=== PATIENT | female | born 1980 | race Caucasian/White ===

== ENCOUNTER 2022-11-17 06:40 | Emergency (ER) | payer MEDICAID ==
[~2022-11-17] VITALS: Ht 170.2 cm; Wt 78.0 kg
[2022-11-17 07:01] VITALS: O2SAT 100
[2022-11-17 09:11] LABS: CLARITY URINE CLOUDY (CLEAR); COLOR URINE YELLOW (YELLOW); GLUCOSE URINE NEGATIVE (NEGATIVE); KETONES URINE NEGATIVE (NEGATIVE); LEUKOCYTE ESTERASE URINE NEGATIVE (NEGATIVE); NITRITE URINE NEGATIVE (NEGATIVE); OCCULT BLOOD URINE NEGATIVE (NEGATIVE); PH URINE 5.5 (4.5-8.0); PROTEIN URINE NEGATIVE (NEGATIVE); SPECIFIC GRAVITY URINE 1.023 (1.005-1.030); UROBILINOGEN URINE 0.2 E.U./dL (0.2-1.0)
[2022-11-17] MEDS ORDERED: KETOROLAC 30MG/ML VIAL IV STA (09:23)
[2022-11-17] MEDS ORDERED: SODIUM CHLORIDE 0.9% 1,000 ML IV ONE (09:30)
[2022-11-17 09:34] LABS: MUCUS URINE TRACE /lpf (< = 2+); SQUAMOUS EPITHELIAL CELL URINE 1+ /lpf (RARE/1+)
[2022-11-17 09:35] LABS: CALCIUM OXALATE CRYSTALS URINE 3+ /lpf
[2022-11-17 09:36] LABS: BASOPHILS % 0.2 % (0.0-2.0); EOSINOPHILS % 0.3 % (0.0-5.0); HEMATOCRIT. 38.5 % (36.0-48.0); HEMOGLOBIN. 12.7 g/dL (12.0-16.0); LYMPHOCYTES % 12.6 % (20.0-50.0); MEAN CORPUSCULAR HEMOGLOBIN 29.2 pg (28.0-32.0); MEAN CORPUSCULAR HGB CONC 32.9 g/dL (31.0-37.0); MEAN CORPUSCULAR VOLUME 88.7 fL (81.0-99.0); MEAN PLATELET VOLUME 7.7 fl (7.4-10.4); MONOCYTES % 3.5 % (2.0-8.0); NEUTROPHILS % 83.4 % (40.0-76.0); PLATELET 297 x1000/uL (130-400); RED BLOOD CELL COUNT 4.34 mill/uL (4.2-5.4); RED CELL DISTRIBUTION WIDTH 14.1 % (11.6-14.6); WHITE BLOOD COUNT 13.5 x1000/uL (4.5-11.0)
[2022-11-17 09:36] LABS: WBC URINE 0-2 /hpf (0-2)
[2022-11-17 09:37] LABS: BACTERIA URINE TRACE; RBC URINE 0-2 /hpf (0-2)
[2022-11-17 09:50] LABS: CHLORIDE 106 mEq/L (98-107); INDEX HEMOLYSI 1 (1-3); INDEX ICTERIC 1 (1-4); INDEX LIPEMIC 1 (1-3); SODIUM 136 mEq/L (136-145)
[2022-11-17 09:52] LABS: HCG SCREEN NEGATIVE
[2022-11-17 09:59] LABS: ALBUMIN 3.8 g/dL (3.4-5.0); CALCIUM 8.7 mg/dL (8.5-10.1); CARBON DIOXIDE 24 mEq/L (21-32); CREATININE 0.5 mg/dL (0.6-1.3); GLUCOSE 131 mg/dL (70-105); PROTEIN TOTAL 7.6 g/dL (6.0-8.3); UREA NITROGEN BLOOD 11 mg/dL (7-21)
[2022-11-17 10:00] LABS: ALANINE AMINOTRANSFERASE 21 IU/L (13-61); ASPARTATE AMINOTRANSFERASE 13 IU/L (15-37); BILIRUBIN TOTAL 0.6 mg/dL (0.1-1.0)
[2022-11-17 10:18] VITALS: BP 128/53; PULSE 71; RESP 20; TEMP 98.1
[2022-11-17] MEDS ORDERED: IBUP-2029 MT (12:53)
== END 2022-11-17 13:37 | disposition home or self-care (01) ==
LOC: ER 06:40
DX: K80.50 Calculus of bile duct without cholangitis or cholecystitis without obstruction (principal); Z98.890 Other specified postprocedural states
CPT/HCPCS: 80053; 81003; 81025; 84703; 83690; 85025; 36415; 76700; 96361; 96374; 99285; J1885; J7030; Z7610

== ENCOUNTER 2023-02-04 20:19 | Emergency (ER) | payer MEDICAID ==
[~2023-02-04] VITALS: Ht 160 cm; Wt 86.0 kg
[~2023-02-04 20:19] MED LIST: IBUP-2029 MT
[2023-02-04 20:25] VITALS: O2SAT 99
[2023-02-04] MEDS ORDERED: SODIUM CHLORIDE 0.9% 1,000 ML IV ONE (20:30)
[2023-02-04] MEDS ORDERED: ACETAMINOPHEN 325MG TABLET PO PRN (20:30)
[2023-02-04] MEDS ORDERED: ONDANSETRON HCL 4MG/2ML INJ IV ONE (20:30)
[2023-02-04 21:20] LABS: BASOPHILS % 0.6 % (0.0-2.0); EOSINOPHILS % 1.9 % (0.0-5.0); HEMATOCRIT. 36.1 % (36.0-48.0); HEMOGLOBIN. 12.3 g/dL (12.0-16.0); LYMPHOCYTES % 24.9 % (20.0-50.0); MEAN CORPUSCULAR VOLUME 91.1 fL (81.0-99.0); MEAN PLATELET VOLUME 7.7 fl (7.4-10.4); MONOCYTES % 7.3 % (2.0-8.0); NEUTROPHILS % 65.3 % (40.0-76.0); PLATELET 304 x1000/uL (130-400); RED BLOOD CELL COUNT 3.96 mill/uL (4.2-5.4); RED CELL DISTRIBUTION WIDTH 14.1 % (11.6-14.6); WHITE BLOOD COUNT 9.8 x1000/uL (4.5-11.0)
[2023-02-04 22:10] LABS: ALANINE AMINOTRANSFERASE 13 IU/L (10-49); ALBUMIN 3.8 g/dL (3.2-4.8); ASPARTATE AMINOTRANSFERASE 16 IU/L (<34); B-HCG QUANTITATIVE 57779 mIU/mL (<3); BILIRUBIN TOTAL 0.4 mg/dL (0.1-1.0); CARBON DIOXIDE 22 mEq/L (21-32); CHLORIDE 106 mEq/L (98-107); CREATININE 0.5 mg/dL (0.6-1.0); GLUCOSE 107 mg/dL (70-105); POTASSIUM 3.2 mEq/L (3.5-5.1); PROTEIN TOTAL 6.6 g/dL (6.0-8.3); SODIUM 138 mEq/L (136-145)
[2023-02-04 22:32] LABS: UREA NITROGEN BLOOD < 5 mg/dL (9-23)
[2023-02-04] MEDS ORDERED: POTASSIUM CHLORIDE 20MEQ TABLET SR PO ONE (22:45)
[2023-02-04 22:51] LABS: CLARITY URINE CLEAR (CLEAR); COLOR URINE YELLOW (YELLOW); GLUCOSE URINE NEGATIVE (NEGATIVE); KETONES URINE NEGATIVE (NEGATIVE); LEUKOCYTE ESTERASE URINE NEGATIVE (NEGATIVE); NITRITE URINE NEGATIVE (NEGATIVE); OCCULT BLOOD URINE NEGATIVE (NEGATIVE); PROTEIN URINE NEGATIVE (NEGATIVE); SPECIFIC GRAVITY URINE 1.013 (1.005-1.030); UROBILINOGEN URINE 0.2 E.U./dL (0.2-1.0)
[2023-02-04 23:13] VITALS: BP 110/64; PULSE 84; RESP 19; TEMP 98.8
== END 2023-02-04 23:15 | disposition home or self-care (01) ==
LOC: ER 20:19
DX: O26.92 Pregnancy related conditions, unspecified, second trimester (principal); R10.2 Pelvic and perineal pain; Z3A.14 14 weeks gestation of pregnancy
CPT/HCPCS: 99284; 96360; 80053; 81003; 81025; 84702; 83690; 85025; 86850; 86900; 86901; 36415; 76815; 76817; J7030

== ENCOUNTER 2023-02-18 13:20 | Emergency (ER) | payer SELFPAY ==
[~2023-02-18] VITALS: Ht 162.6 cm; Wt 80.0 kg
[2023-02-18 13:22] VITALS: O2SAT 97
[2023-02-18 13:57] LABS: BASOPHILS % 0.3 % (0.0-2.0); EOSINOPHILS % 2.7 % (0.0-5.0); HEMATOCRIT. 35.6 % (36.0-48.0); HEMOGLOBIN. 11.8 g/dL (12.0-16.0); LYMPHOCYTES % 21.9 % (20.0-50.0); MEAN CORPUSCULAR HEMOGLOBIN 30.1 pg (28.0-32.0); MEAN CORPUSCULAR HGB CONC 33.2 g/dL (31.0-37.0); MEAN CORPUSCULAR VOLUME 90.7 fL (81.0-99.0); MEAN PLATELET VOLUME 7.8 fl (7.4-10.4); MONOCYTES % 4.7 % (2.0-8.0); NEUTROPHILS % 70.4 % (40.0-76.0); PLATELET 356 x1000/uL (130-400); RED BLOOD CELL COUNT 3.92 mill/uL (4.2-5.4); RED CELL DISTRIBUTION WIDTH 13.8 % (11.6-14.6); WHITE BLOOD COUNT 10.4 x1000/uL (4.5-11.0)
[2023-02-18 14:57] LABS: ALANINE AMINOTRANSFERASE 13 IU/L (10-49); ALBUMIN 3.9 g/dL (3.2-4.8); ASPARTATE AMINOTRANSFERASE 16 IU/L (<34); B-HCG QUANTITATIVE 32127 mIU/mL (<3); BILIRUBIN TOTAL 0.4 mg/dL (0.1-1.0); CALCIUM 9.3 mg/dL (8.7-10.4); CARBON DIOXIDE 24 mEq/L (21-32); CHLORIDE 104 mEq/L (98-107); CREATININE 0.5 mg/dL (0.6-1.0); GLUCOSE 85 mg/dL (70-105); POTASSIUM 3.5 mEq/L (3.5-5.1); PROTEIN TOTAL 6.9 g/dL (6.0-8.3); SODIUM 136 mEq/L (136-145); UREA NITROGEN BLOOD 6 mg/dL (9-23)
[2023-02-18 17:46] VITALS: BP 109/45; PULSE 70; RESP 18; TEMP 98.1
[2023-02-18] MEDS ORDERED: PNV1CAPS46 MT (18:16)
[2023-02-18] MEDS ORDERED: TOPUD MT (18:17)
[2023-02-18] MEDS ORDERED: ONDA4TAB50 MT (18:17)
== END 2023-02-18 18:46 | disposition home or self-care (01) ==
LOC: ER 13:45
DX: O26.892 Other specified pregnancy related conditions, second trimester (principal); Z3A.16 16 weeks gestation of pregnancy; Z90.49 Acquired absence of other specified parts of digestive tract; Z98.890 Other specified postprocedural states
CPT/HCPCS: 80053; 84702; 83690; 85025; 86850; 86900; 86901; 36415; 76805; 99284; Z7610

== ENCOUNTER 2024-06-28 21:29 | Emergency (ER) | payer MEDICAID ==
[~2024-06-28] VITALS: Ht 157.5 cm; Wt 72.1 kg
[~2024-06-28 21:29] MED LIST changes: +ONDA4TAB50 MT; +PNV1CAPS46 MT; +TOPUD MT
[2024-06-28 21:35] VITALS: TEMP 36.7; O2SAT 97
[2024-06-28 21:37] VITALS: O2SAT 99
[2024-06-28 22:17] LABS: CHLORIDE 110 mEq/L (98-107); POTASSIUM 3.6 mEq/L (3.5-5.1); SODIUM 140 mEq/L (136-145)
[2024-06-28 22:18] LABS: CALCIUM 9.3 mg/dL (8.7-10.4); CARBON DIOXIDE 24 mEq/L (21-32)
[2024-06-28 22:23] LABS: BASOPHILS % 0.5 % (0.0-2.0); CREATININE 0.5 mg/dL (0.6-1.0); EOSINOPHILS % 1.9 % (0.0-5.0); GLUCOSE 125 mg/dL (70-105); HEMATOCRIT. 37.2 % (36.0-48.0); HEMOGLOBIN. 12.3 g/dL (12.0-16.0); LYMPHOCYTES % 35.7 % (20.0-50.0); MEAN CORPUSCULAR HEMOGLOBIN 28.7 pg (28.0-32.0); MEAN CORPUSCULAR HGB CONC 33.1 g/dL (31.0-37.0); MEAN CORPUSCULAR VOLUME 86.7 fL (81.0-99.0); MEAN PLATELET VOLUME 7.5 fl (7.4-10.4); MONOCYTES % 6.7 % (2.0-8.0); NEUTROPHILS % 55.2 % (40.0-76.0); PLATELET 343 x1000/uL (130-400); RED BLOOD CELL COUNT 4.29 mill/uL (4.2-5.4); RED CELL DISTRIBUTION WIDTH 14.4 % (11.6-14.6); TROPONIN I HIGH SENSITIVITY < 4 ng/L (3.0-34); UREA NITROGEN BLOOD 11 mg/dL (9-23); WHITE BLOOD COUNT 10.3 x1000/uL (4.5-11.0)
[2024-06-28 23:12] LABS: HCG SCREEN NEGATIVE
[2024-06-28 23:15] VITALS: BP 114/60; PULSE 78; RESP 22
[2024-06-28] MEDS: KETOROLAC 30MG/ML VIAL IM ONE (23:15)
[2024-06-29] MEDS ORDERED: IBUP-2028 MT (00:02)
== END 2024-06-29 00:51 | disposition home or self-care (01) ==
LOC: ER 21:29
DX: R07.89 Other chest pain (principal); K80.20 Calculus of gallbladder without cholecystitis without obstruction; Z90.49 Acquired absence of other specified parts of digestive tract
CPT/HCPCS: 80048; 84703; 85025; 84484; 36415; 71045; 71250; 93005; 96372; 99285; J1885; Z7610